=== PATIENT | male | born 2000 | race Caucasian/White ===

== ENCOUNTER 2019-08-21 16:56 | Emergency (ER) | payer OTHER ==
[~2019-08-21] VITALS: Ht 175.3 cm; Wt 122.0 kg
--- NOTE | 2019-08-21 17:25 | NUR ---
FIRST CONTACT WITH PT. PT STATES "I WAS EATING SOME BREAD AND ROAST BEEF. IT FEELS STUCK. IT WAS ABOUT 35 MINS AGO." DENIES SOB. C/O N/V. PT'S AOX4. RESPS EVEN AND UNLABORED. BP/SPO2 MONITORS IN PLACE. CALL LIGHT WITHIN REACH. EDMD AT BEDSIDE TO EVALUATE AT THIS TIME.
[2019-08-21] MEDS ORDERED: GLUCAGON 1 MG IM ONE (17:30)
[2019-08-21] MEDS ORDERED: GLUCAGON 1 MG ONE (17:33)
--- NOTE | 2019-08-21 17:39 | NUR ---
PT MEDICATED PER EMAR. PT TOLERATED WELL.
[2019-08-21 18:00] VITALS: BP 128/82
--- NOTE | 2019-08-21 18:00 | NUR ---
SODA PROVIDED AT THIS TIME PER EDMD VERBAL ORDER.
--- NOTE | 2019-08-21 18:53 | NUR ---
Patient given discharge instructions and they have confirmed that they understand the instructions. Patient ambulatory with steady gait.
== END 2019-08-21 18:55 | disposition home or self-care (01) ==
LOC: ED 18:49
DX: T18.128A Food in esophagus causing other injury, initial encounter (principal); J45.909 Unspecified asthma, uncomplicated; X58.XXXA Exposure to other specified factors, initial encounter; Y93.89 Activity, other specified; Y92.89 Other specified places as the place of occurrence of the external cause; Y99.8 Other external cause status
CPT/HCPCS: 96372; 99283; J1610